=== PATIENT | female | born 1960 | race Caucasian/White ===

== ENCOUNTER → 2018-11-10 | Outpatient (CLI) | payer SELFPAY ==
--- NOTE | 2018-11-10 15:53 | PCVCIMAG ---
APPROVED REPORT Study performed: 11/10/2018 14:40:50 EXAM: Comprehensive 2D, Doppler, and color-flow Echocardiogram Patient Location: Echo lab Status: routine BSA: 1.87 HR: 77 bpmBP: 104/66 mmHg Rhythm: NSR Other Information Study Quality: Adequate Indications Dyspnea Chest Pain peripheral edema, fam hx cad 2D Dimensions IVSd: 10.49 (7-11mm) LVDd: 40.81 mm PWd: 8.43 (7-11mm)Ascending Ao: 34.26 (22-36mm) LVDs: 32.56 (25-40mm) Left Atrium: 37.77 (27-40mm) Aortic Root: 32.95 mm LV Single Plane 4CH: 72.41 % LV Single Plane 2CH: 63.11 % Biplane EF: 68.0 % Volumes Left Atrial Volume (Systole) Single Plane 4CH: 52.41 mLSingle Plane 2CH: 77.39 mL LA ESV Index: 35.00 mL/m2 Aortic Valve AoV Peak Da.: 1.47 m/s AO Peak Gr.: 8.63 mmHgLVOT Max P.76 mmHg LVOT Max V: 0.97 m/s Mitral Valve E/A Ratio: 1.2 MV Decel. Time: 258.80 ms MV E Max Da.: 0.70 m/s MV A Da.: 0.59 m/s IVRT: 103.81 ms Pulmonary Valve PV Peak Da.: 1.05 m/sPV Peak Gr.: 4.37 mmHg Pulmonary Vein P Vein S: 0.30 m/sP Vein A: 0.43 m/s P Vein D: 0.48 m/sP Vein A Dur.: 148.8 msec P Vein S/D Ratio: 0.63 Tricuspid Valve TR Peak Da.: 2.35 m/s TR Peak Gr.: 22.13 mmHg TV Vmax: 0.48 m/s Left Ventricle The left ventricle is normal size. There is normal LV segmental wall motion. There is normal left ventricular wall thickness. Left ventricular systolic function is normal. The left ventricular ejection fraction is within the normal range. LVEF is 65%. Grade I - abnormal relaxation pattern. Right Ventricle The right ventricle is normal size. The right ventricular systolic function is normal. Atria Left atrium is borderline dilated. The right atrium size is normal. Aortic Valve The aortic valve is normal in structure. No aortic regurgitation is present. There is no aortic valvular stenosis. Mitral Valve The mitral valve is normal in structure. Mild posteriorly directed mitral regurgitation. No evidence of mitral valve stenosis. subtle bileaflet prolapse Tricuspid Valve The tricuspid valve is normal in structure. Trace tricuspid regurgitation with PAP of 29 mmHg. Pulmonic Valve The pulmonary valve is normal in structure. There is no pulmonic valvular regurgitation. Great Vessels The aortic root is normal in size. IVC is normal in size and collapses >50% with inspiration. Pericardium There is no pericardial effusion. There is no pleural effusion. <Conclusion> The left ventricle is normal size. LVEF is 65%. Grade I - abnormal relaxation pattern. The right ventricle is normal size. Left atrium is borderline dilated. Left atrium is borderline dilated. The aortic valve is normal in structure. subtle bileaflet prolapse Mild posteriorly directed mitral regurgitation. Trace tricuspid regurgitation with PAP of 29 mmHg. The aortic root is normal in size. There is no pericardial effusion.
== END | disposition home or self-care (01) ==
LOC: PCVCIMAG 14:55
PROVIDERS: ATTEND Family Medicine
DX: I34.0 Nonrheumatic mitral (valve) insufficiency (principal)
CPT/HCPCS: 93306